=== PATIENT | female | born 1945 | race Caucasian/White ===

== ENCOUNTER 2017-01-31 13:48 | Emergency (ER) | payer OTHER ==
[~2017-01-31] VITALS: Ht 152.4 cm; Wt 43.0 kg
[~2017-01-31 13:48] MED LIST: ACTO35TA; CALC600T34 PO; FISH500C PO; GLUCTAB47 PO; LEVA500T PO; TAB-TAB PO; ZITH500T PO; [UNRECOGNIZED DRUG - OTHER]
[2017-01-31 13:59] VITALS: BP 146/64; PULSE 85; RESP 16; TEMP 98.5; O2SAT 98
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
--- NOTE | 2017-01-31 15:39 | RADRPT ---
EXAM DATE/TIME: 01/31/2017 14:59 [facility] COMPARISON: No previous studies available for comparison. INDICATIONS : Right leg redness. Palpable lump and bruising lower leg. MEDICAL HISTORY : Dementia. Hiatal hernia. SURGICAL HISTORY : Hysterectomy. Hernia repair. ENCOUNTER: Initial ACUITY: 1 week PAIN SCORE: 2/10 LOCATION: Right leg. TECHNIQUE: Venous ultrasound of the leg was performed from the inguinal ligament to the proximal calf. Real-laura e, color Doppler and spectral tracing, compression and augmentation techniques were used. FINDINGS: There is normal compressibility of the deep venous system from the inguinal region to the proximal ca lf. No echogenic clot is seen in the lumen of the common femoral, femoral, popliteal, and posterior tibial veins. There is a normal response of the venous system to proximal and distal augmentation an d respiration. CONCLUSION: Normal examination. Michael Paz Jr., MD on January 31, 2017 at 15:36 Board Certified Radiologist. This report was verified electronically.
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
== END 2017-01-31 16:22 | disposition home or self-care (01) ==
LOC: PHEFT 13:48
DX: S80.11XA Contusion of right lower leg, initial encounter (principal); M79.604 Pain in right leg; V91.29XA Fall due to collision between unspecified watercraft and other watercraft or other object, initial encounter
CPT/HCPCS: 73590; 93971; 99284